=== PATIENT | female | born 1985 | race Caucasian/White ===

== ENCOUNTER 2020-08-12 00:23 | Emergency (ER) | payer OTHER ==
[~2020-08-12 00:23] MED LIST: ADMELOG100 UNIT/1 SC; ALDACTONE25 MG PO; BASAGLAR K100 UNIT/1 SC; BENTYL10 MG PO; CLARITIN10 MG PO; COLCRYS0.6 MG PO; DILANTIN100 MG PO; DUONEB 2.5-0.5M1 AMP INH; HUMALOG INSULIN SQ; IMITREX50 MG PO; LANTUS **100 UNITS/ SQ; LASIX40 MG PO; LIPITOR40 MG PO; MUCINEX 600MG600 MG PO; NEURONTIN300 MG PO; PHENERGAN25 M1 PO; PREDNISONE 20MG20 MG PO; PRILOSEC20 MG PO; PRINIVIL10 MG PO; ROBITUSSIN W/COD5 ML PO; SYNTHROID100 MCG PO; VENTOLIN HFA IN18 GM INH; VIBRAMYCIN100 MG PO; ZPAK PO
[2020-08-12] MEDS ORDERED: CYCLOBENZAPRINE10 MG PO (01:35)
[2020-08-12] MEDS ORDERED: DICLOFENAC SODI75 MG PO (01:35)
[2020-08-23] MEDS ORDERED: MOBIC7.5 MG PO
[2020-08-23] MEDS ORDERED: BACLOFEN 10MG T10 MG PO
[2020-08-23] MEDS ORDERED: PERCOCET 7.5/321 TAB PO
== END 2020-08-12 01:45 | disposition home or self-care (01) ==
LOC: FER 00:23
DX: M54.42 Lumbago with sciatica, left side (principal); E11.9 Type 2 diabetes mellitus without complications; Z86.79 Personal history of other diseases of the circulatory system; Z88.0 Allergy status to penicillin; Z88.8 Allergy status to other drugs, medicaments and biological substances; Z88.5 Allergy status to narcotic agent; Z91.041 Radiographic dye allergy status
CPT/HCPCS: 72100; 96372; J1040; J1885

== ENCOUNTER 2020-08-19 16:52 | Emergency (ER) | payer OTHER ==
[~2020-08-19 16:52] MED LIST changes: +CYCLOBENZAPRINE10 MG PO; +DICLOFENAC SODI75 MG PO
[2020-08-23] MEDS ORDERED: BACLOFEN 10MG T10 MG PO
[2020-08-23] MEDS ORDERED: MOBIC7.5 MG PO
[2020-08-23] MEDS ORDERED: PERCOCET 7.5/321 TAB PO
== END 2020-08-19 21:00 | disposition home or self-care (01) ==
LOC: FER 16:52
DX: M79.662 Pain in left lower leg (principal); M79.672 Pain in left foot; M54.9 Dorsalgia, unspecified; I25.2 Old myocardial infarction; J44.9 Chronic obstructive pulmonary disease, unspecified; Z88.0 Allergy status to penicillin; Z91.041 Radiographic dye allergy status
CPT/HCPCS: 73630; 93971

== ENCOUNTER 2020-08-23 20:31 | Emergency (ER) | payer OTHER ==
[~2020-08-23 20:31] MED LIST changes: +BACLOFEN 10MG T10 MG PO; +MOBIC7.5 MG PO; +PERCOCET 7.5/321 TAB PO
[2020-08-23 21:47] LABS: BUN/CREAT RATIO (CALC) 42.8 RATIO; CREATININE 1.45 mg/dL (0.51-0.95); POTASSIUM 3.5 mmol/L (3.5-5.1)
[2020-08-23 21:47] LABS: BILIRUBIN NEGATIVE (NEGATIVE); BLOOD NEGATIVE Ery/uL (NEGATIVE); CLARITY CLEAR (CLEAR); COLOR YELLOW (YELLOW); GLUCOSE (U) TRACE mg/dL (NORMAL); LEUKOCYTES NEGATIVE Leu/uL (NEGATIVE); NITRITE NEGATIVE (NEGATIVE); PROTEIN TRACE (LOW) mg/dL (NEGATIVE); UROBILINOGEN 0.2 mg/dL (0.2-1.0); pH 5.5 (5.0-9.0)
[2020-08-23 21:49] LABS: BACTERIA TRACE; URINARY WBC RARE
== END 2020-08-24 00:19 | disposition home or self-care (01) ==
LOC: FER 20:31
PROVIDERS: Emergency Medicine Emergency Medical Services
DX: S00.83XA Contusion of other part of head, initial encounter (principal); R25.1 Tremor, unspecified; R20.0 Anesthesia of skin; R53.1 Weakness; M54.2 Cervicalgia; M54.5 Low back pain; M25.552 Pain in left hip; M25.562 Pain in left knee; M79.652 Pain in left thigh; M25.572 Pain in left ankle and joints of left foot; E11.9 Type 2 diabetes mellitus without complications; E03.9 Hypothyroidism, unspecified; Z79.4 Long term (current) use of insulin; Z87.19 Personal history of other diseases of the digestive system; Z88.0 Allergy status to penicillin; Z91.041 Radiographic dye allergy status; Z79.899 Other long term (current) drug therapy; W19.XXXA Unspecified fall, initial encounter; Y92.009 Unspecified place in unspecified non-institutional (private) residence as the place of occurrence of the external cause
CPT/HCPCS: 36415; 70450; 70486; 71045; 72125; 72128; 72131; 73620; 80048; 81001; J1170; J2405; J2800; J7050

== ENCOUNTER 2020-09-10 10:21 | Emergency (ER) | payer OTHER ==
[2020-09-10 11:49] LABS: BASOPHIL 0.5 % (0-2); EOSINOPHIL 0.2 % (0-5); HCT 50.1 % (37.0-47.0); HGB 16.1 g/dl (12.5-16.0); LYMPHOCYTE 13.3 % (15-48); MCH 30.9 pg (25.0-31.0); MCHC 32.1 g/dL (32.0-36.0); MCV 96.2 fL (78.0-100.0); MONOCYTE 3.5 % (0-12); MPV 9.8 fL (6.0-9.5); NEUTROPHIL 81.9 % (41-80); NRBC 0; PLT 333 K/uL (150-400); RBC 5.21 M/uL (4.20-5.40); RDW 15.5 % (11.5-14.0); WBC 13.2 K/uL (4.0-10.5)
[2020-09-10 12:28] LABS: ALBUMIN 2.7 g/dL (3.4-5.0); BILIRUBIN - TOTAL 0.3 mg/dL (0.2-1.0); BUN/CREAT RATIO (CALC) 24.6 RATIO; CREATININE 0.69 mg/dL (0.51-0.95); GLOBULIN (CALCULATION) 4.6 g/dL; POTASSIUM 2.7 mmol/L (3.5-5.1); TOTAL PROTEIN 7.3 g/dL (6.4-8.2)
== END 2020-09-10 14:20 | disposition home or self-care (01) ==
LOC: FER 10:21
PROVIDERS: Emergency Medicine
DX: E11.649 Type 2 diabetes mellitus with hypoglycemia without coma (principal); E03.9 Hypothyroidism, unspecified; F17.210 Nicotine dependence, cigarettes, uncomplicated; Z79.4 Long term (current) use of insulin; Z88.0 Allergy status to penicillin; Z91.041 Radiographic dye allergy status
CPT/HCPCS: 36415; 72131; 72192; 80053; 82962; 83036; 84439; 84443; 85025; J1170; J2405

== ENCOUNTER 2020-12-13 15:18 | Emergency (ER) | payer OTHER ==
[2020-12-13 16:50] LABS: BASOPHIL 0.6 % (0-2); EOSINOPHIL 0.1 % (0-5); HCT 43.9 % (37.0-47.0); HGB 14.4 g/dl (12.5-16.0); LYMPHOCYTE 31.1 % (15-48); MCH 31.2 pg (25.0-31.0); MCHC 32.8 g/dL (32.0-36.0); MCV 95.2 fL (78.0-100.0); MONOCYTE 6.5 % (0-12); MPV 9.9 fL (6.0-9.5); NEUTROPHIL 61.2 % (41-80); NRBC 1.6; PLT 400 K/uL (150-400); RBC 4.61 M/uL (4.20-5.40); RDW 20.8 % (11.5-14.0); WBC 8.7 K/uL (4.0-10.5)
[2020-12-13 17:23] LABS: ALBUMIN 2.9 g/dL (3.4-5.0); BILIRUBIN - TOTAL 0.5 mg/dL (0.2-1.0); BUN/CREAT RATIO (CALC) 22.2 RATIO; CREATININE 0.72 mg/dL (0.51-0.95); GLOBULIN (CALCULATION) 4.2 g/dL; POTASSIUM 2.9 mmol/L (3.5-5.1); TOTAL PROTEIN 7.1 g/dL (6.4-8.2)
[2020-12-13] MEDS ORDERED: SENNA-S 8.6-501 EACH PO (18:56)
== END 2020-12-13 19:15 | disposition home or self-care (01) ==
LOC: FER 15:18
PROVIDERS: Internal Medicine
DX: E87.8 Other disorders of electrolyte and fluid balance, not elsewhere classified (principal); E87.3 Alkalosis; E87.6 Hypokalemia; K59.00 Constipation, unspecified; E03.8 Other specified hypothyroidism; M54.6 Pain in thoracic spine; G89.29 Other chronic pain; E11.9 Type 2 diabetes mellitus without complications; I50.9 Heart failure, unspecified; J45.909 Unspecified asthma, uncomplicated; Z88.0 Allergy status to penicillin
CPT/HCPCS: 36415; 80053; 83880; 84443; 84484; 85025; 93005; 93970

== ENCOUNTER 2021-04-28 01:04 | Emergency (ER) | payer OTHER ==
[~2021-04-28] VITALS: Ht 157.5 cm; Wt 104.3 kg
[~2021-04-28 01:04] MED LIST changes: +CYMBALTA60 MG PO; +DULOXETINE HCL30 MG PO; +SENNA-S 8.6-501 EACH PO
[2021-04-28 02:08] LABS: BASOPHIL 0.4 % (0-2); EOSINOPHIL 0.5 % (0-5); HGB 13.5 g/dl (12.5-16.0); MCH 30.8 pg (25.0-31.0); MCHC 32.9 g/dL (32.0-36.0); MCV 93.4 fL (78.0-100.0); MONOCYTE 3.6 % (0-12); MPV 11.8 fL (6.0-9.5); NEUTROPHIL 83.1 % (41-80); NRBC 0; PLT 244 K/uL (150-400); RBC 4.39 M/uL (4.20-5.40); RDW 15.4 % (11.5-14.0)
[2021-04-28 02:26] LABS: CORONAVIRUS 2019 SARS-COV-2 NEGATIVE (NEGATIVE); INFLUENZA A NAA NEGATIVE (NEGATIVE)
[2021-04-28 02:36] LABS: ACETAMINOPHEN (TYLENOL) < 2.0 ug/mL (10.0-30.0)
[2021-04-28 03:58] LABS: ALBUMIN 3.2 g/dL (3.4-5.0); BILIRUBIN - TOTAL 0.8 mg/dL (0.2-1.0); BUN/CREAT RATIO (CALC) 19.4 RATIO; CREATININE 1.29 mg/dL (0.51-0.95); POTASSIUM 3.6 mmol/L (3.5-5.1); TOTAL PROTEIN 7.2 g/dL (6.4-8.2)
[2021-04-28 04:51] LABS: BILIRUBIN NEGATIVE (NEGATIVE); BLOOD 1+ Ery/uL (NEGATIVE); CLARITY CLEAR (CLEAR); COLOR YELLOW (YELLOW); GLUCOSE (U) NORMAL (NORMAL); LEUKOCYTES NEGATIVE Leu/uL (NEGATIVE); NITRITE NEGATIVE (NEGATIVE); PROTEIN 3+ mg/dL (NEGATIVE); SPECIFIC GRAVITY >=1.030 (1.001-1.030); UROBILINOGEN 0.2 mg/dL (0.2-1.0); pH 5.5 (5.0-9.0)
[2021-04-28 04:54] LABS: INR 1.02 (0.9-1.2); PROTHROMBIN TIME 12.8 SECONDS (11.8-13.4); PTT 31.8 SECONDS (24.4-34.7)
[2021-04-28 04:55] LABS: AMPHETAMINES NEGATIVE (NEGATIVE); BARBITURATES NEGATIVE (NEGATIVE); ECSTASY (MDMA) NEGATIVE (NEGATIVE); MARIJUANA (THC) NEGATIVE (NEGATIVE); METHADONE NEGATIVE (NEGATIVE); OPIATES NEGATIVE (NEGATIVE); OXYCODONE NEGATIVE (NEGATIVE)
[2021-04-28 05:01] LABS: AMORPHOUS URATES CRYSTALS MODERATE; BACTERIA TRACE; URINARY RBC RARE
[2021-04-28 05:02] LABS: GRANULAR CASTS TRACE; RBC CASTS TRACE
[2021-04-29 09:21] LABS: BASOPHIL 0.2 % (0-2); EOSINOPHIL 0.5 % (0-5); HCT 38.8 % (37.0-47.0); HGB 12.9 g/dl (12.5-16.0); LYMPHOCYTE 19.9 % (15-48); MCH 30.8 pg (25.0-31.0); MCHC 33.2 g/dL (32.0-36.0); MCV 92.6 fL (78.0-100.0); MONOCYTE 3.7 % (0-12); MPV 11.3 fL (6.0-9.5); NEUTROPHIL 75.2 % (41-80); NRBC 0; PLT 257 K/uL (150-400); RBC 4.19 M/uL (4.20-5.40); RDW 15.9 % (11.5-14.0); WBC 16.4 K/uL (4.0-10.5)
[2021-04-29 09:50] LABS: ALBUMIN 2.7 g/dL (3.4-5.0); BILIRUBIN - TOTAL 0.6 mg/dL (0.2-1.0); GLOBULIN (CALCULATION) 3.7 g/dL; POTASSIUM 2.9 mmol/L (3.5-5.1); TOTAL PROTEIN 6.4 g/dL (6.4-8.2)
[2021-04-30 06:20] LABS: BASOPHIL 0.3 % (0-2); EOSINOPHIL 0.7 % (0-5); HCT 36.2 % (37.0-47.0); HGB 12.2 g/dl (12.5-16.0); MCH 31.9 pg (25.0-31.0); MCHC 33.7 g/dL (32.0-36.0); MCV 94.5 fL (78.0-100.0); MONOCYTE 4.4 % (0-12); MPV 11.9 fL (6.0-9.5); NEUTROPHIL 78.2 % (41-80); NRBC 0; PLT 278 K/uL (150-400); RBC 3.83 M/uL (4.20-5.40); RDW 16.3 % (11.5-14.0); WBC 17.8 K/uL (4.0-10.5)
[2021-04-30 06:33] LABS: BUN/CREAT RATIO (CALC) 23.1 RATIO; CREATININE 0.78 mg/dL (0.51-0.95); POTASSIUM 4.1 mmol/L (3.5-5.1)
[2021-04-30 08:08] LABS: MAGNESIUM 1.8 mg/dL (1.8-2.4)
[2021-04-30 08:09] LABS: PHOSPHORUS 2.3 mg/dL (2.6-4.7)
[2021-04-30 08:28] LABS: LIPASE 27 U/L (73-393); TRIGLYCERIDES 1175 mg/dL (<150)
[2021-04-30 23:05] LABS: BUN/CREAT RATIO (CALC) 15.2 RATIO; CREATININE 0.66 mg/dL (0.51-0.95); MAGNESIUM 1.8 mg/dL (1.8-2.4); POTASSIUM 3.9 mmol/L (3.5-5.1)
[2021-05-01 05:58] LABS: BASOPHIL 0.4 % (0-2); EOSINOPHIL 0.9 % (0-5); HCT 34.9 % (37.0-47.0); HGB 11.3 g/dl (12.5-16.0); LYMPHOCYTE 12.1 % (15-48); MCH 31.2 pg (25.0-31.0); MCHC 32.4 g/dL (32.0-36.0); MCV 96.4 fL (78.0-100.0); MONOCYTE 2.9 % (0-12); MPV 11.3 fL (6.0-9.5); NEUTROPHIL 83.3 % (41-80); NRBC 0.1; PLT 244 K/uL (150-400); RBC 3.62 M/uL (4.20-5.40); RDW 16.1 % (11.5-14.0)
[2021-05-01 06:24] LABS: BILIRUBIN - TOTAL 0.8 mg/dL (0.2-1.0); BUN/CREAT RATIO (CALC) 14.1 RATIO; CREATININE 0.64 mg/dL (0.51-0.95); GLOBULIN (CALCULATION) 3.3 g/dL; POTASSIUM 3.9 mmol/L (3.5-5.1); TOTAL PROTEIN 5.3 g/dL (6.4-8.2)
== END 2021-05-01 11:50 | disposition other institution (70) ==
LOC: FER 01:04
PROVIDERS: Allergy & Immunology Allergy; Emergency Medicine; Emergency Medicine Emergency Medical Services; Internal Medicine
DX: J44.0 Chronic obstructive pulmonary disease with (acute) lower respiratory infection (principal); J18.9 Pneumonia, unspecified organism; I50.9 Heart failure, unspecified; E11.9 Type 2 diabetes mellitus without complications; R41.82 Altered mental status, unspecified; I25.10 Atherosclerotic heart disease of native coronary artery without angina pectoris; Z20.822 Contact with and (suspected) exposure to COVID-19; Z95.0 Presence of cardiac pacemaker; Z88.0 Allergy status to penicillin; Z88.8 Allergy status to other drugs, medicaments and biological substances; Z91.041 Radiographic dye allergy status
CPT/HCPCS: 31500; 36415; 36600; 70450; 71045; 71250; 74018; 80048; 80053; 80202; 80305; 81001; 82140; 82803; 83605; 83690; 83735; 83880; 84100; 84145; 84478; 84484; 85025; 85610; 85730; 87040; 87070; 87205; 93005; 96365; 96366; 96372; 96375; 96376; C9113; G0480; J1100; J1650; J1815; J1953; J2060; J2185; J2250; J2310; J2704; J3010; J3370; J3480; J7030; J7050; J7060; U0002

== ENCOUNTER 2021-08-08 22:42 | Emergency (ER) | payer OTHER ==
[~2021-08-08 22:42] MED LIST changes: +NARCAN4 MG; +OXYCODONE-ACET1 EAC1 PO
[2021-08-09 00:34] LABS: BASOPHIL 0.2 % (0-2); EOSINOPHIL 0 % (0-5); HCT 40.2 % (37.0-47.0); HGB 13.3 g/dl (12.5-16.0); LYMPHOCYTE 13.3 % (15-48); MCH 29.6 pg (25.0-31.0); MCHC 33.1 g/dL (32.0-36.0); MCV 89.3 fL (78.0-100.0); MONOCYTE 4.1 % (0-12); MPV 10.7 fL (6.0-9.5); NEUTROPHIL 81.9 % (41-80); NRBC 0; PLT 341 K/uL (150-400); RDW 15.9 % (11.5-14.0); WBC 16.6 K/uL (4.0-10.5)
[2021-08-09 01:03] LABS: BUN/CREAT RATIO (CALC) 36.9 RATIO; C-REACTIVE PROTEIN 2.8 mg/dL (<=0.90); CREATININE 1.11 mg/dL (0.51-0.95); POTASSIUM 3.7 mmol/L (3.5-5.1); URIC ACID 16.2 mg/dL (2.6-6.2)
[2021-08-09] MEDS ORDERED: NORCO 5-325 TA1 EACH PO (03:38)
[2021-08-09 03:54] LABS: BILIRUBIN NEGATIVE (NEGATIVE); BLOOD NEGATIVE Ery/uL (NEGATIVE); CLARITY CLEAR (CLEAR); COLOR YELLOW (YELLOW); GLUCOSE (U) 1+ mg/dL (NORMAL); LEUKOCYTES NEGATIVE Leu/uL (NEGATIVE); NITRITE NEGATIVE (NEGATIVE); PROTEIN 1+ mg/dL (NEGATIVE); SPECIFIC GRAVITY 1.025 (1.001-1.030); UROBILINOGEN 0.2 mg/dL (0.2-1.0); pH 5.5 (5.0-9.0)
[2021-08-09 04:08] LABS: URINARY WBC RARE
[2021-08-09 04:09] LABS: BACTERIA 1+
== END 2021-08-09 04:12 | disposition home or self-care (01) ==
LOC: FER 22:42
PROVIDERS: Internal Medicine
DX: M10.9 Gout, unspecified (principal); E11.65 Type 2 diabetes mellitus with hyperglycemia; N17.9 Acute kidney failure, unspecified; J44.9 Chronic obstructive pulmonary disease, unspecified; Z88.0 Allergy status to penicillin; Z91.041 Radiographic dye allergy status; Z88.1 Allergy status to other antibiotic agents
CPT/HCPCS: 36415; 73030; 80048; 81001; 83880; 84550; 85025; 86140; 93005; 96372; J1170; J1885; J2550; J7030

== ENCOUNTER 2021-12-02 05:34 | Emergency (ER) | payer OTHER ==
[~2021-12-02 05:34] MED LIST changes: +NORCO 5-325 TA1 EACH PO; +OXYCODON-ACETA1 EAC1 PO
[2021-12-02] MEDS ORDERED: CYCLOBENZAPRINE10 MG PO (07:03)
[2021-12-02] MEDS ORDERED: PHENERGAN25 M1 PO (07:03)
== END 2021-12-02 07:44 | disposition home or self-care (01) ==
LOC: FER 05:34
DX: M54.12 Radiculopathy, cervical region (principal); Z88.0 Allergy status to penicillin
CPT/HCPCS: 96372; J1170; J1885